=== PATIENT | female | born 1970 | race Caucasian/White ===

== ENCOUNTER 2018-05-01 11:52 | Day surgery (SDC) | payer OTHER ==
[2018-05-01] MEDS ORDERED: LIDOCAINE 100 MG SYRINGE (12:54)
[2018-05-01] MEDS ORDERED: FENTAnyl 50 MCG/ML VIAL (12:54)
[2018-05-01] MEDS ORDERED: PROPOFOL 40 ML (12:54)
== END 2018-05-01 18:21 | disposition home or self-care (01) ==
LOC: GIL 11:52
DX: R13.10 Dysphagia, unspecified (principal); K21.0 Gastro-esophageal reflux disease with esophagitis; K44.9 Diaphragmatic hernia without obstruction or gangrene; K29.60 Other gastritis without bleeding; K31.7 Polyp of stomach and duodenum; I10 Essential (primary) hypertension; E66.9 Obesity, unspecified; Z68.36 Body mass index [BMI] 36.0-36.9, adult
CPT/HCPCS: 43239; 88305

== ENCOUNTER 2018-05-15 06:37 | Emergency (ER) | payer OTHER ==
[2018-05-15 07:37] LABS: ADD MAN DIFF? NO
[2018-05-15 07:39] LABS: BASOPHILS % 0.3 % (0.0-2.0); HEMATOCRIT 38.8 % (37.0-47.0); HEMOGLOBIN 12.7 g/dl (12.0-16.0); LYMPHOCYTES # 1.4 10^3/ul (0.8-2.9); LYMPHOCYTES % 16.4 % (15.0-51.0); MEAN CORPUSCULAR HEMOGLOBIN 22.3 pg (29.0-33.0); MEAN CORPUSCULAR HGB CONC 32.7 g/dl (32.0-37.0); MEAN CORPUSCULAR VOLUME 68.1 fl (82.0-101.0); MEAN PLATELET VOLUME 8.8 fl (7.4-10.4); MONOCYTE # 0.7 10^3/ul (0.3-0.9); MONOCYTES % 8.4 % (0.0-11.0); NEUTROPHIL # 6.5 10^3/ul (1.6-7.5); NEUTROPHILS % 74.6 % (39.0-77.0); PLATELET COUNT 377 10^3/UL (140-415); RED CELL DISTRIBUTION WIDTH 21.1 % (11.5-14.5)
[2018-05-15 07:39] LABS: WHITE BLOOD COUNT 8.8 10^3/ul (4.8-10.8)
[2018-05-15] MEDS: KETOROLAC 15 MG INJ IV (08:00)
[2018-05-15 08:01] LABS: D-DIMER 358.38 ng/ml (<460)
[2018-05-15 08:03] LABS: ALANINE AMINOTRANSFERASE 25 IU/L (13-69); ALBUMIN 4.2 g/dl (3.3-4.9); ALKALINE PHOSPHATASE 81 IU/L (42-121); ANION GAP 19 (8-16); ASPARTATE AMINO TRANSFERASE 28 IU/L (15-46); BILIRUBIN,INDIRECT 0.3 mg/dl (0-1.1); BILIRUBIN,TOTAL 0.3 mg/dl (0.2-1.3); BLOOD UREA NITROGEN 2 mg/dl (7-20); CALCIUM 9.3 mg/dl (8.4-10.2); CARBON DIOXIDE 17 mmol/L (21-31); CHLORIDE 104 mmol/L (97-110); CREATININE 0.57 mg/dl (0.44-1.00); GLUCOSE 95 mg/dl (70-220); POTASSIUM 3.4 mmol/L (3.5-5.1); SODIUM 137 mmol/L (135-144); TOTAL PROTEIN 7.2 g/dl (6.1-8.1)
[2018-05-15 08:14] LABS: TROPONIN-I < 0.012 ng/ml (0.000-0.120)
[2018-05-15] MEDS: ONDANSETRON 4 MG INJ IV (08:35)
== END 2018-05-15 09:15 | disposition home or self-care (01) ==
LOC: E/R 06:37
DX: R07.9 Chest pain, unspecified (principal); R11.2 Nausea with vomiting, unspecified; I10 Essential (primary) hypertension
CPT/HCPCS: 71045; 80053; 84484; 85025; 85378; 93005; 96374; 96375; 99285-25